=== PATIENT | female | born 1965 | race African-American/Black ===

== ENCOUNTER 2017-05-23 15:06 | Emergency (ER) | payer MEDICARE, OTHER ==
[~2017-05-23] VITALS: Ht 165.1 cm; Wt 112.9 kg
[~2017-05-23 15:06] MED LIST: CYCL10TA2 PO; GLIM4TAB2 PO; IBUP-1060 PO; LOSA25TA4 PO; METF-620 PO; SIMV20TA3 PO
[2017-05-23] MEDS ORDERED: IV NORMAL SALINE 1000ML BAG 1,000 ML IV ONE (15:45)
[2017-05-23 15:59] LABS: BILIRUBIN,URINE SMALL (NEG); GLUCOSE,URINE 250 mg/dL (NEG); NITRITE,URINE NEGATIVE (NEG); PROTEIN,URINE 100 mg/dL (NEG-TRACE)
--- NOTE | 2017-05-23 16:01 | PHYS DOC ---
Past Medical History Past Medical History: Diabetes-Type II, High Cholesterol, Hypertension, Other Additional Past Medical Histor: obesity Past Surgical History: Tubal ligation, Other Additional Past Surgical Histo: ankle surgery Alcohol Use: None Drug Use: None Adult General Chief Complaint Chief Complaint: ABDOMINAL PAIN [facility] HPI Patient is a 52 year old female presents to the emergency department with complaints of diffuse abdominal pain for one week. She reports mild nausea with one episode of approximately 1 teaspoon of bile emesis. Patient reports no bowel movement for one week. She denies chest pain, shortness of breath. She reports that she has not taken her blood pressure medication and close her medication today. She has continued to take her diabetic medications as labeled. Review of Systems Review of Systems Constitutional: Denies fever or chills [] Eyes: Denies change in visual acuity, redness, or eye pain [] HENT: Denies nasal congestion or sore throat [] Respiratory: Denies cough or shortness of breath [] Cardiovascular: No additional information not addressed in HPI [] GI: Denies abdominal pain. One episode of small amount of bile emesis. Persistent nausea. Constipation : Denies dysuria or hematuria [] Musculoskeletal: Denies back pain or joint pain [] Integument: Denies rash or skin lesions [] Neurologic: Denies headache, focal weakness or sensory changes [] Endocrine: Denies polyuria or polydipsia [] Current Medications Current Medications Current Medications Medications (Trade) Dose Ordered Sig/Pati Start Time Stop Time Status Last Admin Dose Admin Info (Do NOT chart on this entry -- for MONITORING) 1 each PRN DAILY PRN 05/23/17 16:15 05/25/17 16:14 Iohexol (Omnipaque 300 Mg/ml) 75 ml 1X ONCE 05/23/17 16:15 05/23/17 16:16 DC 05/23/17 16:45 75 ML Magnesium Citrate (Citroma) 296 ml 1X ONCE 05/23/17 17:45 05/23/17 17:46 Sodium Chloride 1,000 ml @ 1,000 mls/hr 1X ONCE 05/23/17 15:45 05/23/17 15:51 DC Allergies Allergies Allergies Coded Allergies Type Severity Reaction Last Updated Verified Penicillins Allergy Intermediate HIVES 08/29/15 Yes Physical Exam Physical Exam Constitutional: Well developed, well nourished, no acute distress, non-toxic appearance. [] HENT: Normocephalic, atraumatic, bilateral external ears normal, oropharynx moist, no oral exudates, nose normal. [] Eyes: PERRLA, EOMI, conjunctiva normal, no discharge. [] Neck: Normal range of motion, no tenderness, supple, no lymphadenopathy Cardiovascular:Heart rate regular rhythm, no murmur [] Lungs & Thorax: Bilateral breath sounds clear to auscultation [] Abdomen: Bowel sounds normal, soft, no tenderness, no masses, no pulsatile masses, no distention [] Skin: Warm, dry, no erythema, no rash. [] Back: No tenderness, no CVA tenderness. [] Extremities: No tenderness, no edema. [] Neurologic: Alert and oriented X 3, normal motor function, normal sensory function, no focal deficits noted. [] Current Patient Data Vital Signs Vital Signs Date Time Temp Pulse Resp B/P (MAP) Pulse Ox O2 Delivery O2 Flow Rate FiO2 05/23/17 15:35 99.2 121 18 161/79 (106) 97 Room Air 99.2 Lab Values Laboratory Tests Test 05/23/17 14:54 05/23/17 15:46 05/23/17 15:55 POC Urine HCG, Qualitative Hcg negative (Negative) Urine Collection Type Unknown Urine Color Love Urine Clarity Clear Urine pH 6.0 Urine Specific [place] >=1.030 Urine Protein 100 mg/dL (NEG-TRACE) Urine Glucose (UA) 250 mg/dL (NEG) Urine Ketones (Stick) Trace mg/dL (NEG) Urine Blood Large (NEG) Urine Nitrite Negative (NEG) Urine Bilirubin Small (NEG) Urine Urobilinogen Dipstick 1.0 mg/dL (0.2 mg/dL) Urine Leukocyte Esterase Small (NEG) Urine RBC Tntc /HPF (0-2) Urine WBC Occ /HPF (0-4) Urine Squamous Epithelial Cells Few /LPF Urine Bacteria 0 /HPF (0-FEW) Urine Mucus Mod /LPF White Blood Count 9.2 x10^3/uL (4.0-11.0) Red Blood Count 3.92 x10^6/uL (3.50-5.40) Hemoglobin 11.6 g/dL (12.0-15.5) L Hematocrit 34.3 % (36.0-47.0) L Mean Corpuscular Volume 88 fL (79-100) Mean Corpuscular Hemoglobin 30 pg (25-35) Mean Corpuscular Hemoglobin Concent 34 g/dL (31-37) Red Cell Distribution Width 13.7 % (11.5-14.5) Platelet Count 339 x10^3/uL (140-400) Neutrophils (%) (Auto) 57 % (31-73) Lymphocytes (%) (Auto) 30 % (24-48) Monocytes (%) (Auto) 11 % (0-9) H Eosinophils (%) (Auto) 1 % (0-3) Basophils (%) (Auto) 1 % (0-3) Neutrophils # (Auto) 5.2 x10^3uL (1.8-7.7) Lymphocytes # (Auto) 2.8 x10^3/uL (1.0-4.8) Monocytes # (Auto) 1.0 x10^3/uL (0.0-1.1) Eosinophils # (Auto) 0.1 x10^3/uL (0.0-0.7) Basophils # (Auto) 0.1 x10^3/uL (0.0-0.2) Sodium Level 136 mmol/L (136-145) Potassium Level 3.5 mmol/L (3.5-5.1) Chloride Level 99 mmol/L (98-107) Carbon Dioxide Level 25 mmol/L (21-32) Anion Gap 12 (6-14) Blood Urea Nitrogen 8 mg/dL (7-20) Creatinine 0.8 mg/dL (0.6-1.0) Estimated GFR (Cockcroft-Gault) 91.1 BUN/Creatinine Ratio 10 (6-20) Glucose Level 268 mg/dL (70-99) H Calcium Level 9.6 mg/dL (8.5-10.1) Total Bilirubin 0.6 mg/dL (0.2-1.0) Aspartate Amino Transferase (AST) 22 U/L (15-37) Alanine Aminotransferase (ALT) 14 U/L (14-59) Alkaline Phosphatase 140 U/L (46-116) H Total Protein 8.8 g/dL (6.4-8.2) H Albumin 2.7 g/dL (3.4-5.0) L Albumin/Globulin Ratio 0.4 (1.0-1.7) L Amylase Level 46 U/L (25-115) Lipase 140 U/L (73-393) Laboratory Tests 05/23/17 15:55 Laboratory Tests 05/23/17 15:55 EKG EKG [] Radiology/Procedures Radiology/Procedures [][facility] [address] [place] [address] IMAGING REPORT Signed PATIENT: AMANDA GRAMAJO ACCOUNT: [id number] : 1965 LOCATION: ER AGE: 52 SEX: F EXAM STATUS: REG ER ORD. PHYSICIAN: EL SCHAEFER APRN REASON: abd pain PROCEDURE: CT ABD PELV W/ IV CONTRST ONLY CT of the abdomen and pelvis with contrast, 05/18/2017: History: Abdominal pain Multidetector CT imaging was performed following IV bolus injection of iodinated contrast material. No oral contrast material was administered for this exam. Two pulmonary nodules are present medially in the right lower lobe. On the coronal images, these nodules measure 1.5 and 2.0 cm. No pleural fluid is evident. No hepatic abnormality is seen. The gallbladder is unremarkable. No pancreatic abnormality is detected. The spleen is of normal size. No renal or adrenal abnormality is detected. There is a large pelvic/abdominal mass which appears to represent an enlarged uterus. It measures approximately 21 x 14 x 19 cm. It contains a 7.5 cm heterogeneous solid mass superiorly. There is an 11 cm low density mass located more centrally. A smaller area of decreased density along the right side of this larger cystic mass may represent fluid within the distorted central uterine cavity, or an additional small cystic mass. There are a couple of small uterine calcifications. The findings suggest a fibroid uterus with a large necrotic central fibroid. Aortic calcific plaquing is present without evidence of aneurysm. No periaortic or mesenteric adenopathy is seen. There appears to be mildly enlarged internal iliac lymph node on the right. The bowel loops are not dilated. The appendix is visualized and shows no abnormality. No free fluid or free air is evident in the abdomen or pelvis. There are moderate scattered degenerative changes in the spine. IMPRESSION: 1. Markedly enlarged uterus containing multiple masses, most likely representing uterine fibroids. Malignant degeneration cannot be excluded. 2. Small right basilar pulmonary nodules raising the possibility of metastatic disease. Course & Med Decision Making Course & Med Decision Making Pertinent Labs and Imaging studies reviewed and findings discussed with patient( See chart for details) The patient is resting comfortably and feels better, is alert and in no distress. Repeat examination is unremarkable and benign; in particular there is no discomfort McBurney's point. The history, exam, diagnostic testing and current condition do not suggest acute appendicitis, bowel obstruction, tubo- ovarian abscess, ectopic , ovarian torsion, acute cholecystitis, bowel perforation, major GI bleed, severe diverticulitis, sepsis or other significant pathology to want further testing, continued ED treatment, admission or surgical evaluation at this point. Vital signs been stable. The patient does not have uncontrollable pain. She does not have intractable vomiting or other significant symptoms. The patient's condition is stable and appropriate for discharge the patient will pursue further outpatient evaluation with her primary care provider is indicated in the discharge instructions. [] Dragon Disclaimer Dragon Disclaimer This electronic medical record was generated, in whole or in part, using a voice recognition dictation system. Departure Departure Impression: Primary Impression: Abdominal pain Additional Impression: Constipation Disposition: HOME, SELF-CARE Condition: STABLE Referrals: REZA HANCOCK MD (PCP) Patient Instructions: Abdominal Pain (Nonspecific), Constipation, Adult, Pulmonary Nodule Additional Instructions: Follow-up with your primary care provider, call tomorrow, regarding the pulmonary nodules that were visualized on the CAT scan. Your primary care physician will determine if further evaluation is indicated. If been given a dose of magnesium citrate in the emergency department. This should relieve U of the constipation symptoms at your suffering. Please return to the emergency Department for new symptoms or concerns or worsening of current condition. Problem Qualifiers Primary Impression: Abdominal pain Abdominal location: generalized Qualified Codes: R10.84 - Generalized abdominal pain Additional Impression: Constipation Constipation type: other constipation type Qualified Codes: K59.09 - Other constipation EL SCHAEFER [employer] May 23, 2017 16:01
[2017-05-23 16:02] LABS: BASO # 0.1 x10^3/uL (0.0-0.2); BASO % 1 % (0-3); EOS % 1 % (0-3); HEMATOCRIT 34.3 % (36.0-47.0); HEMOGLOBIN 11.6 g/dL (12.0-15.5); LYMPH # 2.8 x10^3/uL (1.0-4.8); LYMPH % 30 % (24-48); MEAN CORPUSCULAR HEMOGLOBIN 30 pg (25-35); MEAN CORPUSCULAR HGB CONC 34 g/dL (31-37); MEAN CORPUSCULAR VOLUME 88 fL (79-100); MONO % 11 % (0-9); NEUT % 57 % (31-73); PLATELET COUNT 339 x10^3/uL (140-400); RED BLOOD COUNT 3.92 x10^6/uL (3.50-5.40); RED CELL DISTRIBUTION WIDTH 13.7 % (11.5-14.5); WHITE BLOOD COUNT 9.2 x10^3/uL (4.0-11.0)
[2017-05-23 16:14] LABS: AMYLASE 46 U/L (25-115); CALCIUM 9.6 mg/dL (8.5-10.1); CREATININE 0.8 mg/dL (0.6-1.0); GFR 91.1; POTASSIUM 3.5 mmol/L (3.5-5.1)
[2017-05-23] MEDS ORDERED: IOHEXOL 300 MG/ML 75 ML VIAL IV ONE (16:15)
[2017-05-23] MEDS ORDERED: CONTRAST GIVEN MC PRN (16:15)
[2017-05-23 16:20] LABS: ALBUMIN 2.7 g/dL (3.4-5.0); ALBUMIN/GLOBULIN RATIO 0.4 (1.0-1.7); TOTAL BILIRUBIN 0.6 mg/dL (0.2-1.0); TOTAL PROTEIN 8.8 g/dL (6.4-8.2)
[2017-05-23 16:24] LABS: RBC,URINE TNTC /HPF (0-2)
[2017-05-23 16:25] LABS: BACTERIA,URINE 0 /HPF (0-FEW); SQUAMOUS EPITHELIAL CELL,UR FEW /LPF; WBC,URINE OCC /HPF (0-4)
--- NOTE | 2017-05-23 17:21 | RAD ---
CT of the abdomen and pelvis with contrast, 05/18/2017: History: Abdominal pain Multidetector CT imaging was performed following IV bolus injection of iodinated contrast material. No oral contrast material was administered for this exam. Two pulmonary nodules are present medially in the right lower lobe. On the coronal images, these nodules measure 1.5 and 2.0 cm. No pleural fluid is evident. No hepatic abnormality is seen. The gallbladder is unremarkable. No pancreatic abnormality is detected. The spleen is of normal size. No renal or adrenal abnormality is detected. There is a large pelvic/abdominal mass which appears to represent an enlarged uterus. It measures approximately 21 x 14 x 19 cm. It contains a 7.5 cm heterogeneous solid mass superiorly. There is an 11 cm low density mass located more centrally. A smaller area of decreased density along the right side of this larger cystic mass may represent fluid within the distorted central uterine cavity, or an additional small cystic mass. There are a couple of small uterine calcifications. The findings suggest a fibroid uterus with a large necrotic central fibroid. Aortic calcific plaquing is present without evidence of aneurysm. No periaortic or mesenteric adenopathy is seen. There appears to be mildly enlarged internal iliac lymph node on the right. The bowel loops are not dilated. The appendix is visualized and shows no abnormality. No free fluid or free air is evident in the abdomen or pelvis. There are moderate scattered degenerative changes in the spine. IMPRESSION: 1. Markedly enlarged uterus containing multiple masses, most likely representing uterine fibroids. Malignant degeneration cannot be excluded. 2. Small right basilar pulmonary nodules raising the possibility of metastatic disease. PQRS Compliance Statement: One or more of the following individualized dose reduction techniques were utilized for this examination: 1. Automated exposure control 2. Adjustment of the mA and/or kV according to patient size 3. Use of iterative reconstruction technique
[2017-05-23 17:45] VITALS: BP 138/79
[2017-05-23] MEDS ORDERED: MAGNESIUM CITRATE 296 ML SOLUTION. PO ONE (17:45)
== END 2017-05-23 17:48 | disposition home or self-care (01) ==
LOC: ER 15:06
DX: K59.00 Constipation, unspecified (principal); R11.2 Nausea with vomiting, unspecified; E78.00 Pure hypercholesterolemia, unspecified; I10 Essential (primary) hypertension; Z88.0 Allergy status to penicillin
CPT/HCPCS: 36415; 74177; 80053; 81001; 81025; 82150; 83690; 85027; 99285; C1887; Q9967